=== PATIENT | male | born 1995 | race Caucasian/White ===

== ENCOUNTER 2020-03-20 00:33 | Emergency (ER) | payer OTHER, SELFPAY ==
[~2020-03-20] VITALS: Ht 182.9 cm; Wt 72.7 kg
[2020-03-20] MEDS ORDERED: NORCO, ANEXSIA 5/325MG TABLET (HYDROcodone/ACETAMINOPHEN) PO ONE (01:00)
--- NOTE | 2020-03-20 01:56 | REPVR ---
PROCEDURE INFORMATION: Exam: CT Head Without Contrast Exam date and time: 03/20/2020 1:15 AM Age: 24 years old Clinical indication: Injury or trauma; Fall; Initial encounter; Blunt trauma (contusions or hematomas) TECHNIQUE: Imaging protocol: Computed tomography of the head without contrast. Radiation optimization: All CT scans at this facility use at least one of these dose optimization techniques: automated exposure control; mA and/or kV adjustment per patient size (includes targeted exams where dose is matched to clinical indication); or iterative reconstruction. COMPARISON: No relevant prior studies available. FINDINGS: Brain: Normal. No hemorrhage. Unremarkable white matter. No mass effect. Ventricles: Normal. No ventriculomegaly. Bones/joints: Left facial bone fractures are better evaluated on dedicated examination. No acute calvarial fracture. Sinuses: Visualized sinuses are unremarkable. No fluid levels. Mastoid air cells: Visualized mastoid air cells are well aerated. Soft tissues: Left periorbital soft tissue injury. IMPRESSION: 1. No acute intracranial abnormality. 2. Please refer to report for CT of the facial bones for details regarding facial trauma. Electronically signed by: Rob Curtis On 03/20/2020 01:56:28 AM
--- NOTE | 2020-03-20 01:58 | REPVR ---
PROCEDURE INFORMATION: Exam: CT Maxillofacial Without Contrast Exam date and time: 03/20/2020 1:15 AM Age: 24 years old Clinical indication: Injury or trauma; Fall; Initial encounter; Blunt trauma (contusions or hematomas); Orbit/periorbital; Left TECHNIQUE: Imaging protocol: Computed tomography images of the face without contrast. Radiation optimization: All CT scans at this facility use at least one of these dose optimization techniques: automated exposure control; mA and/or kV adjustment per patient size (includes targeted exams where dose is matched to clinical indication); or iterative reconstruction. COMPARISON: No relevant prior studies available. FINDINGS: Orbits: Partial herniation of the left inferior rectus muscle. Mild left orbital emphysema. Bones/joints: Displaced left orbital floor fracture with fracture fragment displacement measuring 9 mm. Sinuses: Fluid/hemorrhage within the left maxillary sinus. Mild scattered additional paranasal sinus disease. Soft tissues: Left periorbital soft tissue injury including soft tissue gas. IMPRESSION: 1. Displaced left orbital floor fracture. 2. Partial herniation of the left inferior rectus muscle concerning for entrapment. Electronically signed by: Rob Curtis On 03/20/2020 01:58:51 AM
[2020-03-20] MEDS ORDERED: AMPICILLIN SOD/SULBACTAM SOD 3 GM in D5W MINI-BAG PLUS 100 ML IV ONE (02:15)
[2020-03-20 03:18] VITALS: BP 115/65
== END 2020-03-20 03:19 | disposition short-term general hospital (02) ==
LOC: M ED 00:33 → EDBD 00:33 → M ED 03:19
DX: S02.85XA Fracture of orbit, unspecified, initial encounter for closed fracture (principal); Y04.8XXA Assault by other bodily force, initial encounter; Y92.89 Other specified places as the place of occurrence of the external cause; F17.210 Nicotine dependence, cigarettes, uncomplicated